=== PATIENT | female | born 1980 | race Caucasian/White ===

== ENCOUNTER 2017-01-18 17:14 | Emergency (ER) | payer BC, OTHER ==
[2017-01-18] MEDS ORDERED: Ketorolac Tromethamine 30 MG/ML VIAL ONE (18:19)
[2017-01-18] MEDS ORDERED: Fentanyl 100 MCG/2 ML VIAL ONE (19:47)
--- NOTE | 2017-01-18 20:05 | RAD ---
TWO VIEWS OF THE RIGHT TIBIA AND FIBULA 01/18/17 HISTORY: Patient heard crack at top of tami within the tibia. FINDINGS: There is a retrograde intramedullary tami which transfixes the tibiotalar joint with screws also pres ent, and the most distal interlocking screw in the talus is fractured. There is lucency involving th e most proximal interlocking screw within the tibial diaphysis suggesting hardware loosening. On the oblique view of the tibia, there are lucencies seen within the diaphysis at the level of the most p roximal extent of the retrograde intramedullary tami suggesting a nondisplaced fracture in this regio n. 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 There is irregularity involving the anterior tibial tubero sity which may be related to prior [place]-Schlatter's disease. IMPRESSION: 1. Evidence for a fracture of the tibial diaphysis at the most proximal extent of the retrograd e intramedullary tami within the tibia. 2. Postsurgical changes related to fusion of the tibiotalar joint with tami and screws transfixi ng this level. There is fracture of the interlocking screw within the talus as well as lucency surr ounding the most proximal interlocking screw in the intramedullary tami in the tibial diaphysis sugge sting loosening. POS: MARTIN
== END 2017-01-18 20:05 | disposition short-term general hospital (02) ==
LOC: MADERS 17:14
DX: S82.301A Unspecified fracture of lower end of right tibia, initial encounter for closed fracture (principal); Z79.891 Long term (current) use of opiate analgesic; Z79.2 Long term (current) use of antibiotics; Z79.899 Other long term (current) drug therapy; X58.XXXA Exposure to other specified factors, initial encounter
CPT/HCPCS: 96374; 96375; J1885; J3010

== ENCOUNTER 2025-10-20 14:29 | Emergency (ER) | payer MEDICARE ==
[2025-10-20] MEDS ORDERED: cefTRIAXone (ROCEPHIN) 2 GM VIAL ONE (14:55)
[2025-10-20 15:19] LABS: #Basophils 0.0 thou/uL (0.0-0.2); #Eosinophils 0.0 thou/uL (0.0-0.7); #Lymphocytes 0.6 thou/uL (1.20-3.40); #Monocytes 0.2 thou/uL (0.11-0.59); #Neutrophils 6.4 thou/uL (1.40-6.50); %Basophils 0.6 % (0.0-1.0); %Eosinophils 0.5 % (0.0-10.0); %Lymphocytes 8.2 % (21.0-51.0); %Monocytes 3.0 % (0.0-10.0); %Neutrophils 87.7 % (42.0-75.0); Hematocrit 41.6 % (36.0-47.0); Hemoglobin 12.9 g/dL (12.0-16.0); Mean Corpuscular Hemoglobin 28.3 pg (27.0-31.0); Mean Corpuscular Volume 91.1 fl (78.0-98.0); Platelet Count 338 10x3/uL (130-400); Red Blood Cell (RBC) Count 4.57 mill/uL (4.20-5.40); White Blood Cell (WBC) Count 7.3 10x3/uL (4.8-10.8)
[2025-10-20 15:29] LABS: ALT (SGPT) 17 U/L (Less than 34); AST (SGOT) 29 U/L (11-34); Albumin 3.5 g/dL (3.1-4.5); Alkaline Phosphatase 91 U/L (40-110); Anion Gap 17 mmol/L (10-20); BUN (Urea Nitrogen) 15 mg/dL (7.0-18.7); Bilirubin, Total 0.3 mg/dL (0.3-1.2); Calc. Creatinine Clearance 0 mL/min (70-130); Calcium 8.4 mg/dL (7.8-10.44); Carbon Dioxide 19 mmol/L (22-29); Chloride 108 mmol/L (98-107); Globulin 2.9 g/dL (2.4-3.5); Glucose 116 mg/dL (70-105); Potassium 3.6 mmol/L (3.5-5.1); Sodium 140 mmol/L (136-145)
[2025-10-20 15:30] LABS: Troponin I Less than 0.010 ng/mL (< 0.028)
[2025-10-20 15:35] LABS: Magnesium 2.0 mg/dL (1.6-2.6)
[2025-10-20 15:36] LABS: Glucose, Urine (Dipstick) Negative (Negative); Leukocyte Trace (Negative); Protein, Urine (Dipstick) Trace mg/dL (Neg-Trace); Specific Gravity, Urine 1.015 (1.005-1.030)
[2025-10-20 15:43] LABS: Cocaine Metabolite Screen Negative (Negative); THC/Cannabinoid Screen PRELIM POSITIVE (Negative); Tricyclic Screen PRELIM POSITIVE (Negative)
[2025-10-20 15:44] LABS: Bacteria/HPF 3+ HPF (None Seen); CAUTI Indications for Culture Dysuria,urgency,freq; RBC/HPF 0-3 HPF (0-3)
[2025-10-20 15:45] LABS: Urine Culture Reflex No No
[2025-10-20 16:05] LABS: Bicarbonate (HCO3v) 22.6 mmol/L (22.0-28.0); CO2 Tension (PvCO2) 31.2 mmHg (42.0-51.0); Calcium, Ionized 1.04 mmol/L (1.15-1.33); Chloride 113 mmol/L (98-107); Hemoglobin - Calc 13.5 g/dL (12.0-16.0); Potassium 3.6 mmol/L (3.5-5.1); Sodium 141 mmol/L (138-145); T. Carbon Dioxide 23.6 mmol/L (22.0-28.0); vO2 Saturation-calc 99.3 % (60.0-85.0)
== END 2025-10-20 17:39 | disposition home or self-care (01) ==
LOC: MADERS 14:29
DX: R06.82 Tachypnea, not elsewhere classified (principal); I45.81 Long QT syndrome; R82.71 Bacteriuria; F12.20 Cannabis dependence, uncomplicated; E66.9 Obesity, unspecified
CPT/HCPCS: 51701; 71045; 80053; 80306; 81001; 82330; 82435; 82803; 83605; 83735; 83880; 84132; 84295; 84484; 85014; 85025; 87040; 87077; 87086; 87186; 87428; 93005; 94760; 96374; J0696; J7030